=== PATIENT | female | born 1985 | race Caucasian/White ===

== ENCOUNTER 2019-03-03 20:40 | Emergency (ER) | payer MEDICAID ==
[~2019-03-03] VITALS: Ht 170.2 cm; Wt 65.0 kg
[2019-03-03] MEDS ORDERED: DIPHENHYDRAMINE 50MG CAPSULE PO ONE (21:30)
[2019-03-03] MEDS ORDERED: DEXAMETHASONE 0.5MG/5ML ORAL SYR PO ONE (21:30)
[2019-03-03] MEDS ORDERED: DEXAMETHASONE 4MG TABLET PO NR (21:45)
[2019-03-03 23:02] VITALS: BP 119/62
== END 2019-03-03 23:04 | disposition home or self-care (01) ==
LOC: ER 20:40
DX: T78.1XXA Other adverse food reactions, not elsewhere classified, initial encounter (principal); J02.9 Acute pharyngitis, unspecified; X58.XXXA Exposure to other specified factors, initial encounter
CPT/HCPCS: 99282; J8540; Q0163